=== PATIENT | female | born 1955 | race Caucasian/White ===

== ENCOUNTER 2018-09-25 07:43 | Day surgery (SDC) | payer OTHER ==
[2018-09-24 15:54] VITALS: BMI 27.5
[~2018-09-25] VITALS: Ht 160 cm; Wt 72.8 kg
[2018-09-25] VITALS (13 sets, daily range): BP systolic 96–158; BP diastolic 60–75; PULSE 68–82; RESP 14–18; Ht 160 cm; Wt 72.8 kg
[~2018-09-25 07:43] MED LIST: ASPI-903 PO; LEVO50TA7 PO; LEVO75TA5 PO; LOSA25TA12 PO; METF500T24 PO; NAPR-688 PO
[2018-09-25] MEDS ORDERED: EPHEDrine 25 MG/5 ML SYG IV ONE (07:44)
[2018-09-25] MEDS ORDERED: PRAV20TA2 ORAL (08:23)
[2018-09-25] MEDS ORDERED: LOSA50TA14 ORAL (08:24)
[2018-09-25] MEDS ORDERED: CEFAZOLIN 2 GM/50 ML (PMX) 50 ML IVPB ONE (09:00)
[2018-09-25] MEDS ORDERED: SOD CHLORIDE 0.9% 1,000 ML IV SCH (09:00)
[2018-09-25] MEDS ORDERED: BUPIVACAINE 0.25% (MPF) 30 ML INJ ONE (11:10)
--- NOTE | 2018-09-25 11:19 | PREAC ---
Date/Time of Note Date/Time of Note DATE: 09/25/18 TIME: 11:14 Anesthesia Eval and Record Evaluation Time Pre-Procedure Interview DATE: 09/25/18 TIME: 11:14 Age 63 Sex female NPO: 8 hrs Preoperative diagnosis L posterior leg mass Planned procedure L posterior leg mass excision Past Medical History Past Medical History: Includes (enlarged thyroid gland) Cardio: HTN, Dyslipidemia Endo: Diabetes Surgery & Anesthesia Issues No known issue Meds Anticoagulation: No Beta Slime within 24 hr: No Reason Beta Slime not given: Pt. not on B-Slime Reported Medications Losartan Potassium* (Losartan Potassium*) 50 Mg Tablet, 1 TAB ORAL DAILY 09/25/18 Pravastatin Sodium (Pravastatin Sodium) 20 Mg Tablet, 1 TAB ORAL DAILY 09/25/18 Levothyroxine Sodium* (Levothyroxine Sodium*) 50 Mcg Tablet, 50 MCG PO BEFORE BREAKFAST, #30 TAB 09/24/18 Naproxen* (Naproxen*) 500 Mg Tablet, 500 MG PO BID PRN for PAIN LEVEL 4-6, TAB 07/23/14 Aspirin* (Aspirin* Chew) 81 Mg Tab.chew, 81 MG PO DAILY, TAB.CHEW 01/08/14 Metformin Hcl* (Metformin Hcl*) 500 Mg Tablet, 500 MG PO BID, TAB 01/08/14 Discontinued Reported Medications Levothyroxine Sodium* (Levothyroxine Sodium*) 75 Mcg Tablet, 75 MCG PO AC BREAKFAST, TAB 01/08/14 Losartan Potassium* (Losartan Potassium*) 25 Mg Tablet, 25 MG PO DAILY, TAB 01/08/14 Tramadol HCl (Tramadol HCl) 50 Mg Tab, 50 MG PO Q6H PRN for PAIN, TAB 07/23/14 Hydrochlorothiazide* (Hydrochlorothiazide*) 12.5 Mg Tablet, 25 MG PO DAILY, TAB 01/08/14 Discontinued Scripts Hydrocodone Bit-Acetaminophen* (Windber*) 5-325 Mg Tab, 1 TAB PO Q6 PRN for SEVERE PAIN LEVEL 7-10, #10 TAB Prov:MO 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 11/30/14 Current Medications Sodium Chloride 1,000 ml @ 75 mls/hr [id number] IV ; Start 09/25/18 at 09:00; Stop 09/25/18 at 22:19 Meds reviewed: Yes Allergies Coded Allergies: No Known Allergy (Unverified , 09/25/18) Allergies Reviewed: Yes Labs/Studies Labs Reviewed: Reviewed by anesthesiologist ( ) test: N/A Studies: ECG (slight mid and left precordial repolarization disturbance,k long QT interval, borderline ECG), CXR (borderline CM; small faint opacity L mid chest) Pre-procedure Exam Last vitals Vital Signs Date Temp Pulse Resp B/P (MAP) Pulse Ox O2 O2 Flow FiO2 Time Delivery Rate 09/25/18 97.9 72 16 158/75 98 Room Air 08:34 (102) Airway: Adequate mouth opening, Adequate thyromental dist Mallampati: Mallampati II Teeth: Abnormal (upper dentures removed; lower dentures glued tight and pt s tates shes unable to remove it) Lung: Normal Heart: Normal ASA Physical Status ASA physical status: 2 Emergency: None Planned Anesthetic General/MAC: LMA Pre-operative Attestations Prior to commencing anesthesia and surgery, the patient was re-evaluated, there was verification of: *The patient's identity *The results of appropriate recent lab work and preoperative vital signs *The above evaluation not changing prior to induction *Anesthetic plan, risk benefits, alternative and complications discussed with patient/family; questions answered; patient/family understands, accepts and wishes to proceed. BILLY FELIPE September 25, 2018 11:19
[2018-09-25] MEDS ORDERED: FENTAnyl 50 MCG/ML VIAL ONE (11:21)
[2018-09-25] MEDS ORDERED: MIDAZOLAM 1 MG/ML 2 ML INJ ONE (11:21)
[2018-09-25] MEDS ORDERED: CEFAZOLIN 1 GM INJ ONE (11:21)
[2018-09-25] MEDS ORDERED: PROPOFOL 20 ML ONE (11:21)
[2018-09-25] MEDS ORDERED: METOCLOPRAMIDE 10 MG INJ ONE (11:45)
[2018-09-25] MEDS ORDERED: KETOROLAC 30 MG INJ ONE (11:45)
[2018-09-25] MEDS ORDERED: ONDANSETRON 4 MG INJ ONE (11:45)
--- NOTE | 2018-09-25 11:53 | OPR ---
Date/Time of Note Date/Time of Note DATE: 09/25/18 TIME: 11:49 Operative Report Procedure Date: September 25, 2018 Preoperative Diagnosis painful left posterior leg mass Postoperative Diagnosis same Operation/Procedure Performed 1. excision of left posterior leg mass 5 cm mass 5 cm incision 2. localized adjacent tissue transfer with the use of skin flaps 10 sq cm defect of left posterior leg 3. therapeutic injection of subcutaneous local anesthesia Surgeon see signature line Tailor Helper none Anesthesia Type: general Estimated Blood Loss: 0 - 10 ml's Transfusion none Specimen left leg mass Grafts/Implants none Complications none Pt Condition Post Procedure: stable Indications This is a 63-year-old female with a symptomatic left posterior leg mass. She requires surgical excision. Risks alternatives benefits and personally discussed the patient. Patient expressed understanding and consents to the operation. Procedure Description Patient is taken to the OR and prepped and draped in usual sterile fashion. Surgical timeout was performed. IV antibiotics given. Transverse incision was made over the left posterior leg mass. Dissection with cautery skin onto the mass and the mass was circumferentially excised. Good hemostasis status. Due to tissue defect localized adjacent to his transfer with use of skin flaps performed. Multilayer closed with interrupted 3-0 Vicryl and skin garth. Therapeutic subcutaneous local anesthesia is injected at the incision site. Dry dressings were applied. Vicky SIMMONS September 25, 2018 11:53
--- NOTE | 2018-09-25 11:57 | PAC ---
Date/Time of Note Date/Time of Note DATE: 09/25/18 TIME: 11:57 Post-Anesthesia Notes Post-Anesthesia Note Last documented vital signs Vital Signs Date Temp Pulse Resp B/P (MAP) Pulse Ox O2 O2 Flow FiO2 Time Delivery Rate 09/25/18 98.0 72 16 158/75 98 Room Air 12:05 (102) Activity: WNL Respiratory function: WNL Cardiovascular function: WNL Mental status: Baseline Pain reasonably controlled: Yes Hydration appropriate: Yes Nausea/Vomiting absent: Yes JAMES CONDE MD September 25, 2018 11:57
[2018-09-25] MEDS ORDERED: EPHEDrine 25 MG/5 ML SYG IV PRN (12:00)
[2018-09-25] MEDS ORDERED: METOCLOPRAMIDE 10 MG INJ IV PRN (12:00)
[2018-09-25] MEDS ORDERED: LABETALOL HCL 20MG INJ IV PRN (12:00)
[2018-09-25] MEDS ORDERED: FENTAnyl 50 MCG/ML VIAL IV PRN ×2 (12:00)
[2018-09-25] MEDS ORDERED: ONDANSETRON 4 MG INJ IV PRN (12:00)
[2018-09-25] MEDS ORDERED: HYDROCODONE/APAP (5/325) TAB PO ONE (12:00)
[2018-09-25] MEDS ORDERED: hydrALAzine 20 MG INJ IV PRN (12:00)
[2018-09-25] MEDS ORDERED: HYDROmorphONE 1 MG/5 ML IV SYRINGE IV PRN ×2 (12:00)
== END 2018-09-25 13:40 | disposition home or self-care (01) ==
LOC: SDS 07:43
PROVIDERS: ATTEND Surgery
DX: D17.24 Benign lipomatous neoplasm of skin and subcutaneous tissue of left leg (principal); I10 Essential (primary) hypertension; E11.9 Type 2 diabetes mellitus without complications; E78.5 Hyperlipidemia, unspecified
CPT/HCPCS: 14020; 82962; J0690; J1885; J2250; J2405; J2765; J3010; Z7610